=== PATIENT | male | born 1955 | race Caucasian/White ===

== ENCOUNTER 2018-08-14 21:54 | Emergency (ER) | payer BC, OTHER ==
[~2018-08-14] VITALS: Ht 182.9 cm; Wt 90.0 kg
[~2018-08-14 21:54] MED LIST: Amiodarone PO; CARV6.2548 PO; FURO40TA5 PO; LOSA50TA20 PO; PRAV20TA57 PO; RIVA20TA PO
[2018-08-14 23:57] LABS: BASOPHILS % 0.7 % (0.0-2.0); HEMATOCRIT. 36.6 % (42.0-52.0); HEMOGLOBIN. 12.7 g/dL (14.0-18.0); MEAN CORPUSCULAR HEMOGLOBIN 33.5 pg (28.0-32.0); MEAN PLATELET VOLUME 7.7 fl (7.4-10.4); MONOCYTES % 11.6 % (2.0-8.0); NEUTROPHILS % 52.7 % (40.0-76.0); PLATELET 166 x1000/uL (130-400); RED BLOOD CELL COUNT 3.78 mill/uL (4.7-6.1); RED CELL DISTRIBUTION WIDTH 13.1 % (11.6-14.6)
[2018-08-15 00:02] LABS: CHLORIDE 102 mEq/L (98-107)
[2018-08-15 00:09] LABS: INR 1.4; PARTIAL THROMBOPLASTIN TIME 38.1 sec (23.4-31.0); PROTHROMBIN TIME 13.9 sec (9.1-11.1)
[2018-08-15 01:22] VITALS: BP 136/75
== END 2018-08-15 01:24 | disposition home or self-care (01) ==
LOC: ER 21:54
DX: I83.92 Asymptomatic varicose veins of left lower extremity (principal); R60.0 Localized edema; I10 Essential (primary) hypertension; Z95.0 Presence of cardiac pacemaker; Z79.899 Other long term (current) drug therapy
CPT/HCPCS: 36415; 99283

== ENCOUNTER 2025-05-15 12:53 | Inpatient (IN) | payer BC, MEDICARE ==
[~2025-05-15] VITALS: Ht 182.9 cm; Wt 95.9 kg
[~2025-05-15 12:53] MED LIST changes: -LOSA50TA20 PO; +LOSA50TA41 PO
[2025-05-15 12:55] VITALS: O2SAT 94
[2025-05-15] MEDS: SODIUM CHLORIDE 0.9% 1,000 ML IV ONE (13:30)
[2025-05-15 14:08] LABS: BASOPHILS % 0.4 % (0.0-2.0); EOSINOPHILS % 3.7 % (0.0-5.0); HEMATOCRIT. 35.9 % (42.0-52.0); HEMOGLOBIN. 12.3 g/dL (14.0-18.0); LYMPHOCYTES % 21.5 % (20.0-50.0); MEAN PLATELET VOLUME 7.3 fl (7.4-10.4); MONOCYTES % 12.8 % (2.0-8.0); NEUTROPHILS % 61.6 % (40.0-76.0); PLATELET 165 x1000/uL (130-400); RED BLOOD CELL COUNT 3.55 mill/uL (4.7-6.1); RED CELL DISTRIBUTION WIDTH 14.4 % (11.6-14.6)
[2025-05-15 14:22] LABS: CREATININE 2.3 mg/dL (0.6-1.3); UREA NITROGEN BLOOD 26 mg/dL (9-23)
[2025-05-15 14:23] LABS: TROPONIN I HIGH SENSITIVITY 18 ng/L (3.0-53)
[2025-05-15 14:24] LABS: ASPARTATE AMINOTRANSFERASE 24 IU/L (<34); BILIRUBIN DIRECT 0.2 mg/dL (<=3.0); BILIRUBIN TOTAL 0.8 mg/dL (0.1-1.0); PROTEIN TOTAL 6.6 g/dL (6.0-8.3)
[2025-05-15] MEDS ORDERED: ACETAMINOPHEN 325MG TABLET PO PRN ×2 (15:30)
[2025-05-15] MEDS ORDERED: IPRATROPIUM/ALBUTEROL 0.5-3(2.5)MG/3ML NEB NEB PRN (15:30)
[2025-05-15] MEDS ORDERED: DOCUSATE SODIUM 100MG CAPSULE PO PRN (15:30)
[2025-05-15] MEDS ORDERED: GUAIFENESIN 200MG/10ML SUGAR FREE UDC PO PRN (15:30)
[2025-05-15 16:21] LABS: INR 2.0
[2025-05-15 16:26] LABS: ASPARTATE AMINOTRANSFERASE 22 IU/L (<34); BILIRUBIN DIRECT 0.2 mg/dL (<=3.0); BILIRUBIN TOTAL 0.7 mg/dL (0.1-1.0); PHOSPHORUS 3.2 mg/dL (2.5-4.9); PROTEIN TOTAL 6.3 g/dL (6.0-8.3)
[2025-05-15 16:28] LABS: FOLIC ACID (FOLATE) SERUM 14.47 ng/mL (>5.38); T4 FREE 1.42 ng/dL (0.89-1.76); VITAMIN B12 SERUM 495 pg/mL (211-911)
[2025-05-15] MEDS: RIVAROXABAN 15 MG TABLET PO SCH (17:00)
[2025-05-15] MEDS ORDERED: RIVAROXABAN 10 MG TABLET PO SCH (17:00)
[2025-05-15 20:00] VITALS: BP 111/55; PULSE 71; RESP 21; TEMP 36.3; O2SAT 100
[2025-05-15 21:41] VITALS: BP 111/55; PULSE 71; RESP 21; TEMP 36.3068
[2025-05-16 00:27] VITALS: BP 132/95; PULSE 75; RESP 19; TEMP 36.3; O2SAT 100
[2025-05-16 01:17] LABS: CREATINE KINASE MB FRACTION 1.1 ng/mL (0.5-3.6); TROPONIN I HIGH SENSITIVITY 14.0 ng/L (3.0-53)
[2025-05-16 04:29] VITALS: BP 120/56; PULSE 73; RESP 21; TEMP 36.2; O2SAT 99
[2025-05-16] MEDS: LEVOTHYROXINE SODIUM 50MCG TABLET PO SCH (06:25)
[2025-05-16] MEDS: BUMETANIDE 1MG/4ML VIAL IV SCH (06:25)
[2025-05-16 08:00] VITALS: BP 118/77; PULSE 73; RESP 16; TEMP 36.2; O2SAT 100
[2025-05-16 08:21] LABS: HEMATOCRIT. 31.5 % (42.0-52.0); HEMOGLOBIN. 10.9 g/dL (14.0-18.0); MEAN PLATELET VOLUME 7.7 fl (7.4-10.4); PLATELET 167 x1000/uL (130-400); RED BLOOD CELL COUNT 3.15 mill/uL (4.7-6.1); RED CELL DISTRIBUTION WIDTH 14.3 % (11.6-14.6)
[2025-05-16 08:43] LABS: CREATINE KINASE MB FRACTION 1.1 ng/mL (0.5-3.6)
[2025-05-16 08:44] LABS: TROPONIN I HIGH SENSITIVITY 17 ng/L (3.0-53)
[2025-05-16 08:46] LABS: CREATININE 1.8 mg/dL (0.6-1.3); TRIGLYCERIDE 136 mg/dL (0-150); UREA NITROGEN BLOOD 28 mg/dL (9-23)
[2025-05-16 08:47] LABS: LDL CHOLESTEROL 78 mg/dL (5-100)
[2025-05-16 08:48] LABS: PHOSPHORUS 3.3 mg/dL (2.5-4.9)
[2025-05-16 12:00] VITALS: BP 108/78; PULSE 74; RESP 18; TEMP 36.1; O2SAT 98
[2025-05-16 14:14] LABS: BAND% 5.0 % (1.0-6.0); EOSINOPHILS % MANUAL 1.0 % (0.0-5.0); LYMPHOCYTES % MANUAL 32.0 % (20.0-50.0); MONOCYTES % MANUAL 12.0 % (2.0-8.0); NEUTROPHILS % MANUAL 50.0 % (45.0-75.0); NUCLEATED RED BLOOD CELLS 1 /100 WBC; PLATELET ESTIMATE NORMAL
[2025-05-16 16:00] VITALS: BP 105/54; PULSE 66; RESP 18; TEMP 35.7; O2SAT 98
[2025-05-16 17:42] VITALS: BP 105/54; PULSE 66; RESP 18; TEMP 96.3
== END 2025-05-16 20:05 | DRG 312 ==
LOC: ER 12:53 → EDBEDREQ 13:19 → EDBEDREQTM 15:16 → EDBEDREQ 15:16 → ENRESERV 17:05 → 6WST 17:55
PROVIDERS: ADMIT Internal Medicine; ATTEND Internal Medicine
DX: I95.1 Orthostatic hypotension (principal); I13.0 Hypertensive heart and chronic kidney disease with heart failure and stage 1 through stage 4 chronic kidney disease, or unspecified chronic kidney disease; N18.4 Chronic kidney disease, stage 4 (severe); I50.9 Heart failure, unspecified; D53.9 Nutritional anemia, unspecified; D70.9 Neutropenia, unspecified; E78.5 Hyperlipidemia, unspecified; Z79.01 Long term (current) use of anticoagulants
CPT/HCPCS: 36415; 71045; 80048; 80061; 80076; 82140; 82550; 82553; 82607; 82746; 83036; 83605; 83735; 83880; 84100; 84145; 84439; 84443; 84481; 84484; 85025; 85379; 93005; 93970; 96360; 99285; G0378; J3490; J7030